=== PATIENT | male | born 1975 | race Hispanic/Latino ===

== ENCOUNTER 2022-01-25 12:36 | Emergency (ER) | payer OTHER ==
[~2022-01-25] VITALS: Ht 177.8 cm; Wt 133.8 kg
[2022-01-25] MEDS ORDERED: Clindamycin INJ 150 MG/ML 600 MG Vial IM ONE (13:00)
[2022-01-25] MEDS ORDERED: DOXYCYCLINE HY100 MG PO (13:07)
[2022-01-25] MEDS ORDERED: CLINDAMYCIN HC300 MG PO (13:07)
[2022-01-25] MEDS ORDERED: PROBIOTIC & AC1 EACH PO (13:07)
[2022-01-25] MEDS ORDERED: MUPIROCIN 2% OINT 22 GM TUBE TOP ONE (13:30)
[2022-01-25] MEDS ORDERED: Clindamycin INJ 150 MG/ML 600 MG Vial ONE (13:30)
== END 2022-01-25 13:49 | disposition home or self-care (01) ==
LOC: FSED 12:43
DX: L03.116 Cellulitis of left lower limb (principal); L03.032 Cellulitis of left toe
CPT/HCPCS: 96372; 99282

== ENCOUNTER 2022-08-17 21:42 | Emergency (ER) | payer OTHER ==
[~2022-08-17] VITALS: Ht 177.8 cm; Wt 127.0 kg
[~2022-08-17 21:42] MED LIST: CLINDAMYCIN HC300 MG PO; DOXYCYCLINE HY100 MG PO; PROBIOTIC & AC1 EACH PO
[2022-08-17] MEDS ORDERED: AZITHROMYCIN250 MG PO (22:47)
[2022-08-17] MEDS ORDERED: TAMIFLU75 MG PO (22:47)
== END 2022-08-17 23:30 | disposition home or self-care (01) ==
LOC: FSED 22:24
DX: R50.9 Fever, unspecified (principal); J10.1 Influenza due to other identified influenza virus with other respiratory manifestations; J02.0 Streptococcal pharyngitis
CPT/HCPCS: 83518; 87400; 99283